=== PATIENT | male | born 2000 | race Hispanic/Latino ===

== ENCOUNTER → 2025-02-11 | Day surgery (SDC) | payer OTHER ==
[~2025-02-11] MED LIST: ACETAMINOPHEN-1 EAC4 PO; CEFTRIAXONE500 MG IM; CEPHALEXIN500 MG PO; DEXAMETHASONE SOD PHOS INJ 4 MG/ML SDV ONE; FENTANYL CITRATE/PF 100MCG/2 ML INJ ONE; KENALOG-4040 MG/1 ML INJ; KETOROLAC TROMETHAMINE 30 MG/ML VIAL ONE; LIDOCAINE HCL 2% LOCAL INJ 5 ML SDV VIAL INJ ONE; MIDAZOLAM HCL 2 MG/2 ML VIAL ONE; ONDANSETRON HCL INJ 2MG/ML 2ML 2 MG/ML VIAL ONE; PREDNISONE10 MG PO; PROPOFOL IV EMULSION 10 MG/ML 20 ML VIAL ONE
[2025-02-11] MEDS: LACTATED RINGER'S 1,000 ML ONE (07:11)
[2025-02-11 09:35] VITALS: TEMP 97.6
[2025-02-11 09:55] VITALS: BP 134/95; PULSE 72; RESP 16; O2SAT 98
== END | disposition home or self-care (01) ==
LOC: OR 05:45
PROVIDERS: ATTEND Plastic Surgery
DX: D17.9 Benign lipomatous neoplasm, unspecified (principal); Z87.891 Personal history of nicotine dependence
CPT/HCPCS: 88304; J0690; J1100; J1885; J2003; J2250; J2405